=== PATIENT | female | born 1965 ===

== ENCOUNTER 2017-08-10 21:23 | Emergency (ER) | payer MEDICAID ==
[2017-08-10 21:39] VITALS: BP 142/87; PULSE 69; RESP 16; TEMP 98.4; O2SAT 98
[2017-08-10 23:42] LABS: BASO % 0.6 % (0.0-2.0); EOS # 0.1 K/uL (0.0-0.7); EOS % 1.1 % (0.0-4.0); HEMOGLOBIN 13.2 g/dL (12.0-16.0); LYMPH % 40.1 % (20.0-40.0); MEAN CELL VOLUME 89.2 fl (81.0-99.0); MEAN CORPUSCULAR HEMOGLOBIN 29.8 pg (27.0-31.0); MEAN CORPUSCULAR HGB CONC 33.4 g/dL (33.0-37.0); MEAN PLATELET VOLUME 8.7 fl (7.2-11.7); MONO # 0.4 K/uL (0.0-0.8); MONO % 6.1 % (0.0-10.0); NEUT # 3.8 K/uL (1.8-7.0); NEUT % 52.1 % (50.0-75.0); NRBC % 0.1 % (0.0-0.0); RBC 4.45 Mil/uL (3.80-5.20); RED CELL DISTRIBUTION WIDTH 13.7 % (11.5-14.5); WHITE BLOOD COUNT 7.4 K/uL (4.8-10.8)
--- NOTE | 2017-08-10 23:44 | CT ---
EXAM: CT Head Without Intravenous Contrast CLINICAL HISTORY: 52 years old, female; Pain and signs and symptoms; Numbness / parasthesia; Left; Headache; Headache not specified; Additional info: Left facial numbness TECHNIQUE: Axial computed tomography images of the head/brain without intravenous contrast. All CT scans at this facility use one or more dose reduction techniques, viz.: automated exposure control; ma/kV adjustment per patient size (including targeted exams where dose is matched to indication; i.e. head); or iterative reconstruction technique. Coronal and sagittal reformatted images were created and reviewed. COMPARISON: No relevant prior studies available. FINDINGS: Brain: Minimal atrophy. No intracranial hemorrhage. No mass. No definite edema. Ventricles: No hydrocephalus. Bones/joints: No acute fracture. Soft tissues: Unremarkable. Sinuses: No acute sinusitis. Mastoid air cells: No mastoid effusion. Orbits: Unremarkable as visualized. IMPRESSION: 1. No definite acute intracranial abnormality. Acute infarction may be CT occult within first 24 hours. If a focal deficit persists, consider followup CT or MRI for further evaluation. 2. Incidental/non-acute findings are described above.
[2017-08-10 23:52] LABS: ALB/GLOB RATIO 1.3 (1.0-2.1); ALBUMIN 4.2 g/dL (3.5-5.0); ALT/SGPT 40 U/L (9-52); AST/SGOT 23 U/L (14-36); BLOOD UREA NITROGEN 16 mg/dl (7-17); CALCIUM 9.7 mg/dL (8.4-10.2); GFR AFRICAN-AMERICAN > 60; GFR NON-AFRICAN AMERICAN > 60; MAGNESIUM 2.2 MG/DL (1.6-2.3)
[2017-08-10 23:53] LABS: PARTIAL THROMBOPLASTIN TIME 34.4 Seconds (25.6-37.1); PROTHROMBIN TIME 10.7 Seconds (9.8-13.1)
[2017-08-10] MEDS ORDERED: Apap-Butalbital-Caffeine 325-50-40mg Tab PO STA (23:55)
--- NOTE | 2017-08-11 00:01 | ED PDOC ---
HPI: Headache Time Seen by Provider: 08/10/17 22:17 Chief Complaint (Nursing): Headache Chief Complaint (Provider): Headache History Per: Patient History/Exam Limitations: no limitations Onset/Duration Of Symptoms: Days (x 3) Current Symptoms Are (Timing): Still Present Additional Complaint(s): 52 year old female presents to the ED complaining of a left side occiput headache, onset 3 days ago. Patient reports left facial numbness and slight facial weakness but no droop. She took Advil with no relief. Patient denies trauma, fever, blurry vision, weakness in extremities or difficulty walking. PMD: none provided Past Medical History Reviewed: Historical Data, Nursing Documentation, Vital Signs Vital Signs: Last Vital Signs Temp 98.4 F 08/10/17 21:36 Pulse 69 08/10/17 21:36 Resp 16 08/10/17 21:36 BP 142/87 08/10/17 21:36 Pulse Ox 98 08/10/17 21:36 - Medical History PMH: No Chronic Diseases - Surgical History Surgical History: (x2) - Family History Family History: States: Diabetes, Hypertension - Immunization History Hx Tetanus Toxoid Vaccination: No Hx Influenza Vaccination: No Hx Pneumococcal Vaccination: No - Home Medications Home Medications: Ambulatory Orders Medication Instructions Recorded Aspirin [Aspirin Chewable] 1 tab PO ONCE 08/24/16 Naproxen [Naprosyn Tab] 375 mg PO BID PRN #20 tab 08/24/16 Polyethylene Glycol 3350 [Miralax] 17 gm PO DAILY #5 packet 12/07/16 Acetaminophen/Butalbital/Caf 1 tab PO TID PRN #20 tab 08/11/17 [Fioricet] Acyclovir [Zovirax] 400 mg PO 5XD #50 tablet 08/11/17 predniSONE [Prednisone] 60 mg PO DAILY 10 Days tab 08/11/17 - Allergies Allergies/Adverse Reactions: Allergies Allergy/AdvReac Type Severity Reaction Status Date / Time No Known Allergies Allergy Verified 08/10/17 21:36 Review of Systems ROS Statement: Except As Marked, All Systems Reviewed And Found Negative (as per HPI otherwise negative) Constitutional: Negative for: Fever, Weakness (in extremities), Other ( difficulty walking) Eyes: Negative for: Vision Change Neurological: Positive for: Weakness (slight weakness in left side of face), Numbness (left facial), Headache Physical Exam - Reviewed Nursing Documentation Reviewed: Yes Vital Signs Reviewed: Yes - Physical Exam Appears: Positive for: Non-toxic, In Acute Distress (Moderate painful distress) Head Exam: Positive for: ATRAUMATIC, NORMOCEPHALIC Skin: Positive for: Warm, Dry Eye Exam: Positive for: EOMI, PERRL ENT: Negative for: Pharyngeal Erythema, Tonsillar Exudate Neck: Positive for: Painless ROM, Supple Cardiovascular/Chest: Positive for: Regular Rate, Rhythm, Chest Non Tender. Negative for: Murmur Respiratory: Positive for: Normal Breath Sounds. Negative for: Wheezing Gastrointestinal/Abdominal: Positive for: Soft. Negative for: Tenderness Back: Positive for: Normal Inspection. Negative for: Muscle Spasm Extremity: Positive for: Normal ROM. Negative for: Deformity Lymphatic: Negative for: Adenopathy Neurologic/Psych: Positive for: Motor/Sensory Deficits (decreased sensation to light touch on left side of face of cheek and forehead. ) - Laboratory Results Result Diagrams: 08/10/17 23:37 08/10/17 23:37 - ECG O2 Sat by Pulse Oximetry: 98 (RA) Pulse Ox Interpretation: Normal Medical Decision Making Medical Decision Making: Time: 22:51 Impression:: headache and facial sensory deficit Differential diagnosis include but are not limited to liang's palsy, intercranial mass, extra light abnormality, atypical migraine Initial Plan: --Ct head --CMP --Magnesium --Phosphorus --Urine --Urine dip --CBC with differentials --PTT --Prothrombin time --Fioricet 2 tab PO --Toradol [address] FINDINGS: Brain: Minimal atrophy. No intracranial hemorrhage. No mass. No definite edema. Ventricles: No hydrocephalus. Bones/joints: No acute fracture. Soft tissues: Unremarkable. Sinuses: No acute sinusitis. Mastoid air cells: No mastoid effusion. Orbits: Unremarkable as visualized. IMPRESSION: 1. No definite acute intracranial abnormality. Acute infarction may be CT occult within first 24 hours. If a focal deficit persists, consider followup CT or MRI for further evaluation. 2. Incidental/non-acute findings are described above. Labs unremarkable. DW pt findings and plan of care. Pt to be discharged with presumptive diagnosis of Elizabeth palsy and mandatory followup at clinic in 48 hours. Reasons to RTER d/w pt. Scribe Attestation: Documented by Gia Pham, acting as a scribe for Cassandra Berrios MD. Provider Scribe Attestation: All medical record entries made by the Scribe were at my direction and personally dictated by me. I have reviewed the chart and agree that the record accurately reflects my personal performance of the history, physical exam, medical decision making, and the department course for this patient. I have also personally directed, reviewed, and agree with the discharge instructions and disposition. Disposition - Clinical Impression Clinical Impression: Liang's palsy - Disposition Referrals: [facility] [place] [facility] [Outside] - 08/13/17 Disposition Time: 00:00 Condition: STABLE Prescriptions: Acetaminophen/Butalbital/Caf [Fioricet] 1 tab PO TID PRN #20 tab PRN Reason: Headache Acyclovir [Zovirax] 400 mg PO 5XD #50 tablet predniSONE [Prednisone] 60 mg PO DAILY 10 Days tab Instructions: Liang's Palsy Forms: [facility] School/Work Excuse Print Language: [place]
== END 2017-08-11 00:45 | disposition home or self-care (01) ==
LOC: H.ER 21:23
DX: G51.0 Bell's palsy (principal); Z79.82 Long term (current) use of aspirin
CPT/HCPCS: 70450; 80053; 82948; 83735; 84100; 85025; 85610; 85730; 96374; 99283; J1885